=== PATIENT | male | born 1960 | race Caucasian/White ===

== ENCOUNTER 2016-07-14 00:30 | Emergency (ER) | payer BC ==
--- NOTE | 2016-07-14 00:59 | ERNOTE ---
Chest Pain/Cardiac HPI Chief Complaint: Chest Pain Time Seen by Provider: 07/14/16 00:50 Source: patient, family Exam Limitations: no limitations Immunizations: IMMUNIZATION HX Immunizations Up to Date Yes History of Influenza Vaccine Yes Hx Pneumococcal Vaccination Yes Allergies/Adverse Reactions: Allergies No Known Allergies Allergy (Verified 07/14/16 00:46) Home Medications: HOME MEDICATIONS NK [No Home Medication] 07/14/16 [Last Taken Unknown] Narrative: Pt states he was awakened by a foot cramp and got up and took an OTC medication for that. After going back to bed (and approx 2 hrs FRONT DESK ADMIN) he began to have left sided, sharp chest pain that was intermittent lasting approx 2 minutes at a time. He found no position or remedy and eventually called EMS and was brought here. While in the ambulance he had no chest pain but did have left arm numbness that is now resolved Timing: intermittent, resolved prior to arrival Severity/Quality: moderate, sharp Location: left chest Chest Pain Radiation: jaw, arms - left down to medial elbow Activities at Onset: rest Modifying Factors - Improves: Present: nothing Modifying Factors - Worsens: Present: nothing Nitro Today/Relief: no nitro taken today Associated Symptoms: Absent: diaphoresis, nausea Prior Chest Pain/Cardiac Workup: Denies: prior chest pain Review of Systems - Review of Systems Constitutional: Absent: recent illness, fever, chills, diaphoresis EYE: Present: no symptoms reported ENT: Present: ear pain - that happens intermittently. Absent: nose congestion, sore throat Respiratory: Absent: shortness of breath, cough Cardiology: Present: See HPI. Absent: palpitations, syncope, edema Gastrointestinal/Abdominal: Absent: nausea, vomiting, abdominal pain Genitourinary: Present: no symptoms reported Musculoskeletal: Present: See HPI, muscle pain - spasm in foot Skin: Absent: rash Neurological: Present: tingling - left arm. Absent: weakness, tremors Endocrine: Present: no symptoms reported Hematologic/Lymphatic: Present: no symptoms reported Psych: Present: no symptoms reported - Patient's Past Medical History Patient History - Medical: No pertinent hx Patient History - Cardiac/Respiratory: COPD Patient History - Cancer: No Hx of Cancer Patient History - Surgical Procedures: T & A - Social History Living Situations: home Smoking Status: Current every day smoker Patient requests Smoking Cessation Consult: No Initiate information on Smoking Cessation: No Alcohol Use: none Drug Use: none - Immunizations Immunizations Up to Date: Yes Hx Pneumococcal Vaccination: Yes History of Influenza Vaccine: Yes Physical Exam - Physical Exam General Appearance: Present: wd/wn, alert, no apparent distress Eye Exam: Normal inspection: bilateral Ears, Nose, Throat: Present: normal except - - EAC's occluded with cerumen bilateral Neck: Present: normal inspection, nontender Respiratory: Present: no respiratory distress, normal breath sounds, no accessory muscle use, chest nontender, lungs clear Cardiovascular/Chest: Present: regular rate, rhythm, no murmur, normal peripheral pulses Gastrointestinal/Abdominal: Present: normal bowel sounds, nontender, nondistended, soft Extremity Exam: Present: normal inspection, non-tender, normal range of motion, no edema Neurological Exam: Present: alert, oriented, normal mood/affect, no motor/ sensory deficits Skin Exam: Present: normal color, warm/dry Lymphatic Exam: Present: no adenopathy ED Progress - Results and Orders Patient's Lab Results:: I have reviewed the patient's lab results. Results and Orders: Laboratory Tests 07/14/16 07/14/16 07/14/16 00:47 00:47 00:47 WBC 7.5 Hgb 15.0 Hct 42.8 Plt Count 194 PT 10.0 INR (Anticoag Therapy) 0.96 PTT (Zuleyka) 22.9 L Sodium 142 Potassium 3.8 Chloride 105 Carbon Dioxide 27.0 Anion Gap 13.8 BUN 13 Creatinine 1.05 Est GFR (Non-Af Amer) 77 Random Glucose 88 Calcium 8.9 Calcium Adj for Albumin 8.7 Total Bilirubin 0.3 AST 13 ALT 17 L Alkaline Phosphatase 68 Troponin I Less than 0.017 Total Protein 7.1 Albumin 3.9 - Vital Signs Patient's Vital Signs:: I have reviewed the patient's vital signs. Vital Signs: Vital Signs 07/14/16 00:37 Temperature 37.3 C Pulse Rate 66 Respiratory 20 Rate Blood Pressure 124/70 O2 Sat by Pulse 100 Oximetry - EKG EKG: NSR, no ST T wave changes EKG read: Interp. by me - X-Ray X-Ray #1 X-Ray: chest Interpretation: Interp. by me X-ray Comments: no infiltrate or effusion, no pneumothorax. - Progress/Reassessment Chief Complaint: Chest Pain Progress:: Pain free at discharge Departure - Departure Clinical Impression: Chest pain, musculoskeletal Disposition: Home Follow Up Needed Condition: Good Instructions: Nonspecific Chest Pain, [id number] Additional Instructions: See your regular doctor for cholesterol and other risk factor evaluation. Return to ER if you have return of your symptoms
[2016-07-14 01:03] LABS: Hematocrit 42.8 % (42.0-52.0); Mean Cell Volume 93.4 fl (78-100); Mean Corpuscular Hemoglobin 32.8 pg (27-31); Mean Platelet Volume 9.9 fl (6.0-9.5); Neutrophil # 3.1 K/mm3 (1.3-6.0); Neutrophil % 40.9 % (42-75.0); Platelet Count 194 K/mm3 (150-450); Red Blood Count 4.58 M/mm3 (4.7-6.0); Red Cell Distribution Width 11.9 % (11.5-14.0); White Blood Count 7.5 K/mm3 (4.0-10.5)
[2016-07-14 01:07] LABS: ALT 17 U/L (19-67); AST 13 U/L (0-48); Albumin * 3.9 gm/dl (3.4-5.0); Alkaline Phosphatase * 68 U/L (50-170); Anion Gap 13.8 mmol/L (6.8-13.8); BUN/Creatinine Ratio 12.4 (9.0-21.6); Bilirubin, Total 0.3 mg/dL (0.0-1.1); Blood Urea Nitrogen 13 mg/dL (6-23); Ca. Corrected For Albumin 8.7 mg/dL (8.4-10.2); Calcium * 8.9 mg/dL (7.9-10.9); Chloride 105 mmol/L (97-106); Glucose * 88 mg/dL (70-110); Potassium 3.8 mmol/L (3.4-4.6); Sodium 142 mmol/L (132-142); Total Protein 7.1 gm/dL (6.2-8.2)
[2016-07-14 01:11] LABS: INR 0.96 INR (0.90-1.10); Partial Thrombolplastin Time 22.9 Seconds (24-32)
[2016-07-14 01:12] LABS: Troponin I Less than 0.017 ng/ml (0.00-0.10)
--- OUTSIDE RECORDS SUMMARY | 2016-07-14 02:31 | XMS REPORT | Continuity of Care Document ---
:1960 Author Organization [facility] ([facility]) Address [address] [place] [address] Phone [phone] Care Team Providers Name Role Phone Unavailable Primary Care Provider Unavailable Source Comments This disclosure is being made pursuant to the Care Everywhere program, applicable federal and state laws, and may not contain all informaitonavailable regarding this patient.[facility] ([facility]) Active Allergies and Adverse Reactions Not on File Current Medications Not on file Active Problems Not on file Social History Tobacco Use Types Packs/Day Years Used Date Never Assessed Plan of Care Health Maintenance Due Date Last Done Comments HCV Screening 1960 Hepatitis B Vaccine (1 of 3 - Primary Series) 1960 Tdap Vaccine 1969 Lipid Disorder Screening 1976 MMR Vaccine 1976 Td Vaccine 1976 Colonoscopy 08/22/2008 Prostate Cancer Screening 2008 Influenza Vaccine: Seasonal (#1) 12/14/2015 Results from Last 3 Months Not on file
[2016-07-14 02:33] VITALS: BP 113/63
== END 2016-07-14 02:57 | disposition home or self-care (01) ==
LOC: ER 00:30
DX: R07.89 Other chest pain (principal); Z72.0 Tobacco use